=== PATIENT | male | born 1965 | race Caucasian/White ===

== ENCOUNTER → 2022-12-24 10:52 | Outpatient (BNVA) | payer MEDICAID, SELFPAY | PROVIDERS: Referring Provider Nurse Practitioner; Visit Provider Orthopaedic Surgery | DX: M25.511 Pain in right shoulder (principal) | CPT/HCPCS: 73030 ==

== ENCOUNTER 2023-01-25 10:14 | Emergency (ER) | payer MEDICAID, SELFPAY ==
[2023-01-25 10:44] VITALS: BP 144/85; PULSE 96; RESP 16; TEMP 36.8; O2SAT 95; BMI 34.3
--- NOTE | 2023-01-25 11:00 | W.ED.EXTPRO ---
HPI - Extremity Problem General: Chief complaint: Extremity Injury, Lower Stated complaint: Swelling in legs,SOB Time Seen by Provider: 01/25/23 11:00 History of Present Illness: Mr. Mcgowan is a 57-year-old gentleman with history of COPD presenting to the emergency department for heart failure symptoms. He does not have a history of heart failure or known heart disease. He reports approximately 2 weeks of noticing some left lateral thigh pain that was burning and aching. Initially this was intermittent however now has been constant and he reports lower extremity edema which is new. He has gained approximately 20 pounds in the past 6 weeks unintentionally. He does note dyspnea and dyspnea on exertion. Denies other infectious symptoms. Reports normal urine output. Course of symptoms is worsened. Intensity is moderate. No other specific changes in health, exacerbating, or alleviating factors identified. Onset (ago): week(s) Pain Consistency: constant and intermittent Location: left and lower extremity Quality: burning Radiation: none Relieving factors: movement Exacerbating factors: nothing Associated symptoms: Reports short of breath and other Review of Systems General: Reports: 10 or more systems reviewed and unremarkable except in HPI and below PFSH ED PFSH: Medical History (Updated 02/05/23 @ 14:23 by Chacho Crow MD) Cigarette nicotine dependence COPD (chronic obstructive pulmonary disease) Surgical History H/O wrist surgery Family History Other CAD (coronary artery disease) Family history of premature coronary artery disease Stroke Social History Smoking and tobacco status: current every day smoker cigarettes Packs smoked per day: 1 Years cigarettes smoked: 42 [ Other cigarette details: 13] Physical Exam Const: COMMON NORMALS: alert GENERAL APPEARANCE: cooperative and well developed HENMT: COMMON NORMALS: normocephalic and atraumatic HEAD & SCALP: normocephalic and atraumatic Eye: COMMON NORMALS: conjunctivae normal CONJUNCTIVA: Yes conjunctivae normal SCLERA: sclerae normal Neck/C-Spine: COMMON NORMALS: supple GENERAL: Yes trachea midline Resp: COMMON NORMALS: normal respiratory effort EFFORT & INSPECTION: Yes able to speak in complete sentences AUSCULTATION: diminished lung sounds Cardio: COMMON NORMALS: regular rate and regular rhythm RATE: regular rate RHYTHM: regular rhythm PERIPHERAL PULSES: posterior tibial pulses present and dorsalis pedis present GI: COMMON NORMALS: Soft to palpation PALPATION: Yes Soft to palpation and No Tenderness to palpation present (GI) Extremity: NARRATIVE EXTREMITY EXAM: TTP lateral thigh in the LFCN distribution GENERAL: Yes normal exam except as noted and Yes edema Neuro: COMMON NORMALS: moves all extremities SENSORIUM/ORIENTATION: Yes alert and No Orientation impaired Psych: COMMON NORMALS: mental status grossly normal and Normal thought process present THOUGHT PROCESS: Normal thought process present Course Vital Signs: Vital signs: Vital Signs Temperature 98.2 F 01/25/23 10:44 Pulse Rate 96 01/25/23 10:44 Respiratory Rate 16 01/25/23 10:44 Blood Pressure 144/85 01/25/23 10:44 Pulse Oximetry 95 01/25/23 10:44 Oxygen Delivery Me thod 01/25/23 10:44 MDM - Extremity (Nontraumatic) Medical Decision Making 57-year-old gentleman presenting with shortness of breath and lower extremity edema. He also endorses weight gain/abnormal sensation. Exam as above. Patient is nontoxic in appearance. EKG notable for sinus rhythm, normal axis and intervals, no STEMI. Similar on repeat. Labs with mild leukocytosis, normal hemoglobin, mildly elevated platelet count. No significant metabolic abnormalities. BNP is normal. Elevated TSH with normal free T4. Chest x-ray with cardiomegaly and mild increased pulmonary vascular congestion, negative DVT study. Patient does have evidence of congestive heart failure and clinical history and exam however vital signs are satisfactory and he does not show evidence of acute decompensation/cardiogenic shock. I believe outpatient management with close follow-up and initiation of course of Lasix with potassium supplementation from the ER is appropriate and patient is comfortable with this plan. The results of ED evaluation were discussed with the patient including prescriptions and/or symptomatic cares (if applicable) including appropriate and responsible use, followup plan, and return precautions. The patient verbalized understanding and felt safe for discharge. Medical Records I reviewed the patient's medical records. Lab Data I reviewed the patient's lab results. 01/25/23 12:09 01/25/23 12:09 Radiology Impressions Chest X-Ray 01/25/23 11:10 IMPRESSION: Cardiomegaly with elevated central venous pressure otherwise negative chest. Laboratory Results WBC 11.8 10^3/uL (4.0-10.0) H 01/25/23 12:09 RBC 4.21 10^6/uL (4.1-5.3) 01/25/23 12:09 Hgb 12.1 g/dL (11.7-16.6) 01/25/23 12:09 Hct 38.7 % (42.0-52.0) L 01/25/23 12:09 MCV 91.9 fl (80-94) 01/25/23 12:09 MCH 28.7 pg (28.0-34.0) 01/25/23 12:09 MCHC 31.3 g/dL (30.0-36.0) 01/25/23 12:09 RDW 14.9 % (12.1-15.1) 01/25/23 12:09 Plt Count 426 10^3/cmm (130-400) H 01/25/23 12:09 MPV 8.8 fL (7.4-10.4) 01/25/23 12:09 Neut % (Auto) 73.7 % 01/25/23 12:09 Lymph % (Auto) 13.2 % 01/25/23 12:09 Dyer % (Auto) 8.0 % 01/25/23 12:09 Eos % (Auto) 3.4 % 01/25/23 12:09 Baso % (Auto) 1.2 % 01/25/23 12:09 Neut # (Auto) 8.67 10^3/uL (1.8-7.7) H 01/25/23 12:09 Lymph # (Auto) 1.6 10^3/uL (0.8-4.8) 01/25/23 12:09 Dyer # (Auto) 0.9 10^3/uL (0.2-0.9) 01/25/23 12:09 Eos # (Auto) 0.4 10^3/uL (0.0-0.8) 01/25/23 12:09 Baso # (Auto) 0.1 10^3/uL (0.0-0.1) 01/25/23 12:09 Nucleated RBC % (auto) 0 % 01/25/23 12:09 Nucleated RBCs # 0.0 /100WBC 01/25/23 12:09 Sodium 137 mmol/L (136-145) 01/25/23 12:09 Potassium 4.5 mmol/L (3.5-5.1) 01/25/23 12:09 Chloride 100 mmol/L (98-107) 01/25/23 12:09 Carbon Dioxide 28 mmol/L (22-29) 01/25/23 12:09 Anion Gap 13.5 (5-19) 01/25/23 12:09 BUN 8 mg/dL (6-20) 01/25/23 12:09 Creatinine 0.8 mg/dL (0.7-1.2) 01/25/23 12:09 GFR Calculation 100.4 mL/min (90-130) 01/25/23 12:09 Glucose 90 mg/dL (65-115) 01/25/23 12:09 Calculated Osmolality 282 mOsm/kg (285-295) L 01/25/23 12:09 Calcium 9.3 mg/dL (8.5-10.5) 01/25/23 12:09 Total Bilirubin 0.2 mg/dL (0.15-1.2) 01/25/23 12:09 AST 25 U/L (0-40) 01/25/23 12:09 ALT 17 U/L (0-41) 01/25/23 12:09 Alkaline Phosphatase 83 U/L (40-130) 01/25/23 12:09 Troponin T Baseline 14 ng/L (0-15) 01/25/23 12:09 NT-Pro-B Natriuret Pep 59 pg/mL (0-125) 01/25/23 12:09 Total Protein 6.8 g/dL (6.6-8.7) 01/25/23 12:09 Albumin 4.1 g/dL (3.5-5.2) 01/25/23 12:09 Globulin 2.7 g/dL (1.3-4.6) 01/25/23 12:09 TSH 6.57 uIU/mL (0.27-4.20) H 01/25/23 12:09 Free T4 1.05 ng/dL (0.82-1.77) 01/25/23 12:09 Discharge Plan Discharge Patient Disposition: Home Clinical Impression: Edema, peripheral, Symptom of congestive heart failure Condition: Stable Prescriptions: New Lasix 20 mg tablet 20 mg PO DAILY Qty: 30 0RF potassium chloride 10 mEq capsule, extended release 10 meq PO DAILY Qty: 30 0RF No Action amlodipine 10 mg tablet 10 mg PO DAILY Qty: 30 3RF levothyroxine 137 mcg tablet 137 mcg PO DAILY Ventolin HFA 90 mcg/actuation HFA aerosol inhaler 2 puff INHALATION Q4H PRN (Reason: Shortness Of Breath Or Wheezing) Symbicort 160-4.5 mcg/actuation HFA aerosol inhaler 2 puff INHALATION BID buprenorphine-naloxone [Suboxone] 8-2 mg film 1 film sublingual TID Spiriva Respimat 2.5 mcg/actuation mist 2 puff INHALATION DAILY buspirone 10 mg tablet 10 mg PO DAILY Discharge Orders: Discharge ED (Routine); Ordered 01/25/23 Ordered By: Stephan Potter Referrals: Cady Kumari, PATENT ENGINEER [Primary Care Provider] - Discharge Diet: Low Salt Discharge Activity: Increase activity as tolerated Patient Instructions: Congestive Heart Failure, Leg Edema (ED), Low-Sodium Diet (ED) Activity Restrictions/Additional Instructions: Thank you for visiting the emergency department. You were seen and evaluated for signs and symptoms of heart failure. Given laboratory and clinical evaluation I do not believe that you require inpatient management at this time. I will start you on Lasix and potassium supplementation. This requires laboratory follow-up within 1 week for evaluation of electrolytes and kidney function. I will also message case management for cardiology follow-up and an outpatient echocardiogram to evaluate your heart function. Please follow-up with your primary care provider. Return to the emergency department for worsening symptoms, chest pain, shortness of breath, worsening symptoms despite medication, or anything else that you are concerned about and feel needs emergency department evaluation. Coding Level of Care Code ED Director Of Sustainability Programs for Marco Laguna
--- NOTE | 2023-01-25 11:10 | XRR_ITS ---
PROCEDURE INFORMATION: Exam: XR Chest Exam date and time: 01/25/2023 11:17 AM Age: 57 years old Clinical indication: Shortness of breath; Additional info: SOB TECHNIQUE: Imaging protocol: Radiologic exam of the chest. Views: 1 view. COMPARISON: CR XR shoulder RT min 2V* [id number] 12/24/2022 10:53 AM FINDINGS: Lungs: Lung danielson are aerated and clear without infiltrates or overt CHF. Pleural spaces: Unremarkable. No pleural effusion. No pneumothorax. Heart/Mediastinum: Cardiac silhouette is enlarged. There is pulmonary vascular redistribution indicating elevated central venous pressure. Bones/joints: Unremarkable. XR/XR chest 1V portable [id number] IMPRESSION: Cardiomegaly with elevated central venous pressure otherwise negative chest.
--- NOTE | 2023-01-25 11:10 | USCV_ITS ---
Wilian Mcgowan Age: 57 Gender: M : 1965 Exam Date: 01/25/2023 11:45 Ordering Phys: Stephan Potter MD Technologist: BEE [place] [facility] [place] LLE PAIN AND NUMBNESS HISTORY: Lower extremity pain. PROCEDURES: Venous duplex imaging was performed in only the left lower extremity. The following venous structures were evaluated: common femoral vein, profunda vein, proximal portion of the greater saphenous vein, superficial femoral vein, and the popliteal vein. In addition, the posterior tibial and peroneal trunk were evaluated. Serial compression, augmentation maneuvers, and spectral Doppler flow evaluation were performed. FINDINGS: No evidence of DVT seen in any vessel visualized at this time. CONCLUSIONS No evidence of left lower extremity DVT. Ellis Moreno MD (Electronically Signed) Final Date: 25 January 2023 12:40 S
--- NOTE | 2023-01-25 11:11 | ECG_ITS ---
[facility] Test Date: 2023-01-25 Pat Name: Wilian Mcgowan Department: Room: Gender: Male Quality Assurance Director: : 1965 Requested By: Stephan Potter Order Number: [id number] Manuelito MD: Julio Lino M.D. Measurements Intervals [place] Rate: 86 P: 37 WV: 170 QRS: 69 QRSD: 92 T: 69 QT: 338 QTc: 406 Interpretive Statements SINUS RHYTHM No previous ECG available for comparison Electronically Signed On 01-25-2023 18:17:26 CLIENT ACCOUNT REPRESENTATIVE by Julio Lino M.D. [id number]
[2023-01-25 12:21] LABS: Basophils # 0.1 10^3/uL (0.0-0.1); Basophils % 1.2 %; Eosinophils # 0.4 10^3/uL (0.0-0.8); Eosinophils % 3.4 %; Hematocrit 38.7 % (42.0-52.0); Hemoglobin 12.1 g/dL (11.7-16.6); Lymphocytes # 1.6 10^3/uL (0.8-4.8); Lymphocytes % 13.2 %; Mean Corpuscular HGB Conc 31.3 g/dL (30.0-36.0); Mean Corpuscular Hemoglobin 28.7 pg (28.0-34.0); Mean Corpuscular Volume 91.9 fl (80-94); Mean Platelet Volume 8.8 fL (7.4-10.4); Monocytes # 0.9 10^3/uL (0.2-0.9); Neutrophils # 8.67 10^3/uL (1.8-7.7); Neutrophils % 73.7 %; Nucleated Red Blood Cells % 0 %; Platelet Count 426 10^3/cmm (130-400); Red Blood Count 4.21 10^6/uL (4.1-5.3); Red Cell Distribution Width 14.9 % (12.1-15.1); White Blood Count 11.8 10^3/uL (4.0-10.0)
[2023-01-25 12:48] LABS: Troponin(5th) Baseline 14 ng/L (0-15)
[2023-01-25 12:55] LABS: Alanine Aminotransferase 17 U/L (0-41); Albumin Level 4.1 g/dL (3.5-5.2); Alkaline Phosphatase 83 U/L (40-130); Anion Gap 13.5 (5-19); Aspartate Amino Transferase 25 U/L (0-40); Blood Urea Nitrogen 8 mg/dL (6-20); Calcium 9.3 mg/dL (8.5-10.5); Carbon Dioxide 28 mmol/L (22-29); Chloride 100 mmol/L (98-107); Globulin 2.7 g/dL (1.3-4.6); Glomerular Filtration Rate 100.4 mL/min (90-130); Glucose 90 mg/dL (65-115); NT Pro B Type Natriuretic Pept 59 pg/mL (0-125); Osmolality Calculated 282 mOsm/kg (285-295); Potassium 4.5 mmol/L (3.5-5.1); Sodium 137 mmol/L (136-145); Thyroid Stimulating Hormone 6.57 uIU/mL (0.27-4.20); Total Bilirubin 0.2 mg/dL (0.15-1.2); Total Protein 6.8 g/dL (6.6-8.7)
--- NOTE | 2023-01-25 13:11 | ECG_ITS ---
[facility] Test Date: 2023-01-25 Pat Name: Wilian Mcgowan Department: Room: Gender: Male Chief Console Operator: : 1965 Requested By: Stephan Potter Order Number: [id number] Manuelito MD: Julio Lino M.D. Measurements Intervals [place] Rate: 77 P: 32 AR: 173 QRS: 56 QRSD: 91 T: 61 QT: 357 QTc: 405 Interpretive Statements SINUS RHYTHM WITH OCCASIONAL SUPRAVENTRICULAR PREMATURE COMPLEXES WARNING: DATA QUALITY MAY AFFECT INTERPRETATION Compared to ECG 01/25/2023 11:15:41 No significant changes Electronically Signed On 01-25-2023 18:22:01 MEDICAL STAFF COORDINATOR by Julio Lino M.D. [email or web address] center[id number]
[2023-01-25 13:43] LABS: Free T4 Free Thyroxine 1.05 ng/dL (0.82-1.77)
--- NOTE | 2023-01-26 08:37 | DCPLANNER ---
Addendum entered by Nahomi Mcmanus 01/28/23 08:35: chef kitchen manager received the following message from [facility] regarding follow up appointment: Per Dr Wolf: patient needs to be evaluated by pcp to determine referral to cardiology Spoke with patient, he stated he feels better than alright and the swelling is down . When asked if he started the lasix he said yes and it has helped, the pain in my left thigh is gone . When asked about his breathing he said it's the same, I have copd . Advised to f/u with pcp, he has appt tomorrow with her and to continue medications. He as been on inhalers since [address] Wolf: call patient and see how he is doing Original Note: chef kitchen manager had message to schedule a follow up appointment for patient with cardiology. chef kitchen manager sent patients information to the front office staff at [facility]. Patients information will be printed and reviewed. Clinic will call patient with appointment information.
--- NOTE | 2023-01-26 10:29 | DCPLANNER ---
Addendum entered by Nahomi Mcmanus 02/23/23 15:07: Patient did attend echo scheduled for 02.18.23 Addendum entered by Nahomi Mcmanus 01/28/23 08:40: Patient has a follow up appointment scheduled for Saturday, February 18, 2023 at 7:00 for an echo. Original Note: auto leasing manager had message to schedule an outpatient echo for patient. auto leasing manager faxed signed order to centralized scheduling, who will call patient with appointment information.
== END 2023-01-25 13:55 | disposition home or self-care (01) ==
PROVIDERS: Emergency Provider Emergency Medicine; PCP Nurse Practitioner
DX: R60.0 Localized edema (principal); I50.9 Heart failure, unspecified; J44.9 Chronic obstructive pulmonary disease, unspecified; F17.210 Nicotine dependence, cigarettes, uncomplicated
CPT/HCPCS: 36415; 71045; 80053; 83880; 84439; 84443; 84484; 85025; 93005; 93971; 99285

== ENCOUNTER 2023-02-16 07:16 | Outpatient (CLI) | payer MEDICAID, SELFPAY ==
--- NOTE | 2023-02-16 07:15 | CT_ITS ---
WS: [id number] LDCT LUNG CANCER SCREENING TECHNIQUE: Noncontrast CT of the chest with coronal and sagittal reformatted images. CLINICAL INFORMATION: lung screening COMPARISON: None. DLP: 73.40 mGy.cm DIvol: Mean CTDIvol: 1.60 (mGy) All CT scans at [facility] use at least one of these dose optimization techniques: automat ed exposure control; mA and/or kV adjustment per patient size (includes targeted exams where dose is matched to clinical indication); or iterative reconstruction. FINDINGS: A few calcified granulomas. Slight bibasilar atelectasis. No other suspicious findings. Normal caliber thoracic aorta. No mediastinal or hilar lymphadenopathy. No acute pulmonary infiltrate s. No focal pneumonia or pleural fluid. No axillary lymphadenopathy. Adrenal glands are normal. Small esophageal hiatal hernia. CT/CT lung screening [id number] IMPRESSION: LUNG-RADS: 2-Benign Appearance or Behavior FOLLOW UP: 12 Month: Continue annual screening with LDCT
== END 2023-02-16 07:17 | disposition home or self-care (01) ==
LOC: RAD 07:16
PROVIDERS: PCP Nurse Practitioner; Visit Provider Internal Medicine Pulmonary Disease
DX: Z12.2 Encounter for screening for malignant neoplasm of respiratory organs (principal); F17.210 Nicotine dependence, cigarettes, uncomplicated
CPT/HCPCS: 71271

== ENCOUNTER 2023-02-18 07:14 | Outpatient (CLI) | payer MEDICAID, SELFPAY ==
--- NOTE | 2023-02-18 07:26 | USCV_ITS ---
Juan MWilian Age: 57 Gender: M : 1965 Exam Date: 02/18/2023 07:30 Ordering Phys: Stephan Potter MD Technologist: [place] [facility] [place]: chf BP: 159 / 97 HR: 86 Rhythm: Sinus Technical Quality: Adequate MEASUREMENTS (Male / Female) Normal Values 2D ECHO LV Diastolic Diameter PLAX 4.2 cm 4.2 - 5.9 / 3.9 - 5.3 cm LV Systolic Diameter PLAX 2.9 cm IVS Diastolic Thickness 1.2 cm 0.6 - 1.0 / 0.6 - 0.9 cm IVS Systolic Thickness 1.6 cm LVPW Diastolic Thickness 1.3 cm 0.6 - 1.0 / 0.6 - 0.9 cm LVPW Systolic Thickness 1.6 cm LVOT Diameter 2.1 cm LV Ejection Fraction 2D Teich 58.2 % LV Ejection Fraction MOD 2C 62.2 % LV Ejection Fraction 2C AL 62.9 % LA Diameter 3.8 cm Aorta at Sinotubular Diameter 2.7 cm IVC Diameter 2.2 cm M-MODE Aortic Annulus Diameter 3.7 cm LA Ao Ratio MM 1.1 MV E Point Septal Separation 1.1 cm DOPPLER AV Peak Velocity 134.0 cm/s LVOT Peak Velocity 94.0 cm/s AV Area Cont Eq vti 2.3 cm squared AV Area Cont Eq pk 2.3 cm squared MV Area PHT 5.0 cm squared Mitral E to A Ratio 1.3 MV E' Velocity 67.5 cm/s Mitral E to MV E' Ratio 11.8 Mitral E to LV E' Lateral Ratio 10.1 Mitral E to LV E' Septal Ratio 14.1 TR Peak Velocity 204.0 cm/s TR Peak Gradient 16.6 mmHg TV Peak E Velocity 82.0 cm/s Right Atrial Pressure 3.0 mmHg Pulmonary Artery Systolic Pressu 19.6 mmHg RV Acceleration Time 0.1 s FINDINGS Left Ventricle Normal left ventricular size and systolic function, EF 61 %. No regional wall motion abnormalities. Right Ventricle The right ventricle is normal in size and function. Right Atrium The right atrium is normal in size. Left Atrium The left atrium is normal in size. Mitral Valve Trace to mild mitral valve regurgitation. Aortic Valve No gross abnormalities noted Tricuspid Valve Mild tricuspid valve regurgitation. Pulmonic Valve No gross abnormalities noted Pericardium Normal pericardium without effusion. Aorta Normal ascending aorta dimension. IVC Normal inferior vena cava. CONCLUSIONS Normal left ventricular size and systolic function, EF 61 %. No regional wall motion abnormalities. Trace to mild mitral valve regurgitation. Mild tricuspid valve regurgitation. Estimated pulmonary artery peak systolic pressure 20 mm Hg. There is no pericardial effusion. There are no intracardiac masses. No similar previous studies are available for comparison Dr Leonora Wolf MD FACC (Electronically Signed) Final Date: 18 February 2023 11:44 S
== END 2023-02-18 07:15 | disposition home or self-care (01) ==
PROVIDERS: PCP Nurse Practitioner; Visit Provider Internal Medicine Pulmonary Disease
DX: I08.1 Rheumatic disorders of both mitral and tricuspid valves (principal); I50.9 Heart failure, unspecified
CPT/HCPCS: 93306

== ENCOUNTER 2023-02-18 18:05 | Emergency (ER) | payer MEDICAID, SELFPAY ==
[2023-02-18 18:10] VITALS: BP 149/98; PULSE 99; RESP 18; TEMP 36.3; O2SAT 96; BMI 33.1
--- NOTE | 2023-02-18 21:41 | ED_ITS ---
Documented by User: SAM Gomez 02/18/23 23:35 HPI - Extremity Problem General: Chief complaint: Extremity Problem,Nontraumatic Stated complaint: bilateral feet swelling Time Seen by Provider: 02/18/23 21:40 History of Present Illness: 57-year-old male patient comes in due to swelling of the lower extremities bilaterally. Patient had been seen 1 week ago and was given 20 mg of Lasix daily for 7 days with minimal to no relief. Patient was s een earlier today in outpatient clinic for echocardiogram. Patient was recommended to come to the ER for repeat evaluation due to the redness in his lower extremities. Patient reports no chest pain or shortness of breath. Patient does have a history of hypertension, COPD, and nicotine dependence. Associated symptoms: Reports rash; Deny chest pain or fever(s) Review of Systems Const: Denies: fever(s) Card: Reports: swelling of feet/ankles and other; Denies: chest pain Resp: Reports: other; Denies: dyspnea GI: Denies: nausea or vomiting : Denies: difficulty urinating Musc: Reports: extremity pain and extremity swelling Skin/Breast: Reports: rash PFSH ED PFSH: Medical History (Updated 02/18/23 @ 23:28 by SAM Gomez) Cigarette nicotine dependence COPD (chronic obstructive pulmonary disease) Surgical History H/O wrist surgery Family History Other CAD (coronary artery disease) Family history of premature coronary artery disease Stroke Social History Smoking and tobacco status: current every day smoker cigarettes Packs smoked per day: 1 Years cigarettes smoked: 42 [ Other cigarette details: 13] Physical Exam Const: COMMON NORMALS: alert HENMT: COMMON NORMALS: normocephalic HEAD & SCALP: normocephalic MOUTH: Normal oral and palatal mucosa present Neck/C-Spine: COMMON NORMALS: full ROM Resp: COMMON NORMALS: normal respiratory effort and clear to auscultation bilaterally AUSCULTATION: clear to auscultation bilaterally Cardio: COMMON NORMALS: regular rate and regular rhythm RATE: regular rate RHYTHM: regular rhythm GI: COMMON NORMALS: Soft to palpation and non-tender PALPATION: Yes Soft to palpation : COMMON NORMALS: Yes no CVA tenderness BLADDER/KIDNEY EXAM: Yes no CVA tenderness Back/Pelvis: COMMON NORMALS: no CVA tenderness Extremity: COMMON NORMALS: full ROM NARRATIVE EXTREMITY EXAM: Bilateral ankle swelling with +1 edema. Patient also has some redness to the skin at the sock line and above. Neuro: SENSORIUM/ORIENTATION: Yes alert Skin: COMMON NORMALS: turgor normal GENERAL SKIN EXAM: turgor normal Course Vital Signs: Vital signs: Vital Signs Temperature 97.4 F L 02/18/23 18:10 Pulse Rate 83 02/19/23 00:04 Respiratory Rate 16 02/19/23 00:04 Blood Pressure 124/77 02/19/23 00:04 Pulse Oximetry 95 02/19/23 00:04 Oxygen Delivery Me thod 02/18/23 18:10 MDM - Extremity (Nontraumatic) Medical Decision Making 57-year-old gentleman comes in today due to increased swelling to the lower extremities bilateral. Patient just completed 1 week of Lasix with minimal to no relief of swelling. Patient was recommended to be seen in the ER due to the swelling to his lower extremities. On exam pulses are intact. Patient has some redness above the sock line bilateral extremities. Patient does have +1 pitting edema to both extremities. Differential diagnosis includes but not limited to CHF, adverse drug effect, dependent edema. Current values were unremarkable. I believe the patient probably has some stasis dermatitis secondary to his abnormal swelling to bilateral lower extremities. Believe patient's amlodipine is most likely causing some secondary swelling will recommend holding the medication and placing him on lisinopril 10 mg with 12-1/2 mg of hydrochlorothiazide. We will stop any further Lasix. I reviewed this with the patient and had discussed the plan with Dr. Barrera who agreed to the plan. Patient reported understanding and agreed to recommendations and need for follow-up. Lab Data 02/18/23 22:05 02/18/23 22:05 Radiology Impressions Chest X-Ray 02/18/23 21:43 IMPRESSION: No acute cardiopulmonary findings. Laboratory Results WBC 11.0 10^3/uL (4.0-10.0) H 02/18/23 22:05 RBC 4.20 10^6/uL (4.1-5.3) 02/18/23 22:05 Hgb 12.2 g/dL (11.7-16.6) 02/18/23 22:05 Hct 37.2 % (42.0-52.0) L 02/18/23 22:05 MCV 88.6 fl (80-94) 02/18/23 22:05 MCH 29.0 pg (28.0-34.0) 02/18/23 22:05 MCHC 32.8 g/dL (30.0-36.0) 02/18/23 22:05 RDW 15.3 % (12.1-15.1) H 02/18/23 22:05 Plt Count 371 10^3/cmm (130-400) 02/18/23 22:05 MPV 8.9 fL (7.4-10.4) 02/18/23 22:05 Neut % (Auto) 63.9 % 02/18/23 22:05 Lymph % (Auto) 17.4 % 02/18/23 22:05 Franklin % (Auto) 11.7 % 02/18/23 22:05 Eos % (Auto) 5.4 % 02/18/23 22:05 Baso % (Auto) 1.1 % 02/18/23 22:05 Neut # (Auto) 7.06 10^3/uL (1.8-7.7) 02/18/23 22:05 Lymph # (Auto) 1.9 10^3/uL (0.8-4.8) 02/18/23 22:05 Franklin # (Auto) 1.3 10^3/uL (0.2-0.9) H 02/18/23 22:05 Eos # (Auto) 0.6 10^3/uL (0.0-0.8) 02/18/23 22:05 Baso # (Auto) 0.1 10^3/uL (0.0-0.1) 02/18/23 22:05 Nucleated RBC % (auto) 0 % 02/18/23 22:05 Nucleated RBCs # 0.0 /100WBC 02/18/23 22:05 ESR 51 mm/hr (0-10) H 02/18/23 22:05 Sodium 134 mmol/L (136-145) L 02/18/23 22:05 Potassium 3.5 mmol/L (3.5-5.1) 02/18/23 22:05 Chloride 97 mmol/L (98-107) L 02/18/23 22:05 Carbon Dioxide 26 mmol/L (22-29) 02/18/23 22:05 Anion Gap 14.5 (5-19) 02/18/23 22:05 BUN 11 mg/dL (6-20) 02/18/23 22:05 Creatinine 0.8 mg/dL (0.7-1.2) 02/18/23 22:05 GFR Calculation 100.4 mL/min (90-130) 02/18/23 22:05 Glucose 124 mg/dL (65-115) H 02/18/23 22:05 Calculated Osmolality 279 mOsm/kg (285-295) L 02/18/23 22:05 Calcium 8.9 mg/dL (8.5-10.5) 02/18/23 22:05 Total Bilirubin 0.2 mg/dL (0.15-1.2) 02/18/23 22:05 AST 19 U/L (0-40) 02/18/23 22:05 ALT 17 U/L (0-41) 02/18/23 22:05 Alkaline Phosphatase 100 U/L (40-130) 02/18/23 22:05 Troponin T Baseline 10 ng/L (0-15) 02/18/23 22:05 Troponin T 120 Minute Cancelled 02/18/23 Unknown Delta Troponin T Cancelled 02/18/23 Unknown C-Reactive Protein 21.7 mg/L (0.0-4.9) H 02/18/23 22:05 NT-Pro-B Natriuret Pep 36 pg/mL (0-125) 02/18/23 22:05 Total Protein 7.8 g/dL (6.6-8.7) 02/18/23 22:05 Albumin 4.2 g/dL (3.5-5.2) 02/18/23 22:05 Globulin 3.6 g/dL (1.3-4.6) 02/18/23 22:05 TSH 2.09 uIU/mL (0.27-4.20) 02/18/23 22:05 EKG Data EKG 1: EKG interpretation date: 02/18/23 EKG interpretation time: 22:16 Prior EKG tracings: available for review Interpretation: EKG shows a normal sinus rhythm with a regular rate at 82 bpm. There is some artifact on the EKG. Compared to other exams it was unremarkable. No ST elevation or ectopy was seen. Discharge Plan Discharge Patient Disposition: Home Clinical Impression: Lower extremity edema Hypertension Qualifiers: Hypertension type: unspecified Qualified Code(s): I10 - Essential (primary) hypertension Condition: Stable Prescriptions: New lisinopril-hydrochlorothiazide 10-12.5 mg tablet 1 tab PO DAILY Qty: 30 2RF No Action amlodipine 10 mg tablet 10 mg PO DAILY Qty: 30 3RF levothyroxine 137 mcg tablet 137 mcg PO DAILY Ventolin HFA 90 mcg/actuation HFA aerosol inhaler 2 puff INHALATION Q4H PRN (Reason: Shortness Of Breath Or Wheezing) Symbicort 160-4.5 mcg/actuation HFA aerosol inhaler 2 puff INHALATION BID buprenorphine-naloxone [Suboxone] 8-2 mg film 1 film sublingual TID Spiriva Respimat 2.5 mcg/actuation mist 2 puff INHALATION DAILY Lasix 20 mg tablet 20 mg PO DAILY Qty: 30 0RF potassium chloride 10 mEq capsule, extended release 10 meq PO DAILY Qty: 30 0RF buspirone 10 mg tablet 10 mg PO DAILY Discharge Orders: Discharge ED (Routine); Ordered 02/18/23 Ordered By: Torsten Perry Referrals: Cady Kumari FNP [Primary Care Provider] - Discharge Diet: Usual diet Discharge Activity: Increase activity as tolerated Patient Instructions: Hypertension (ED) Activity Restrictions/Additional Instructions: Home and rest. Elevate lower legs is much as possible. Stop amlodipine. Start on lisinopril with hydrochlorothiazide daily in the morning. Follow-up with primary care in 1 week for recheck of blood pressure and reevaluation. Return to ER for worsening symptoms such as fever greater than 100.4, increased shortness of breath, or severe chest pain, or new concerns. Coding Level of Care Code ED Audio Visual Specialist for Chg Fwd Documented by User: Shadi Crawford Bruce, 02/19/23 01:43 HPI - Extremity Problem General: Chief complaint: Extremity Problem,Nontraumatic Stated complaint: bilateral feet swelling Time Seen by Provider: 02/18/23 21:40 PFS ED PFS: Medical History (Updated 02/18/23 @ 23:28 by SAM Gomez) Cigarette nicotine dependence COPD (chronic obstructive pulmonary disease) Surgical History H/O wrist surgery Family History Other CAD (coronary artery disease) Family history of premature coronary artery disease Stroke Social History Smoking and tobacco status: current every day smoker cigarettes Packs smoked per day: 1 Years cigarettes smoked: 42 [ Other cigarette details: 13] Course Vital Signs: Vital signs: Vital Signs Temperature 97.4 F L 02/18/23 18:10 Pulse Rate 83 02/19/23 00:04 Respiratory Rate 16 02/19/23 00:04 Blood Pressure 124/77 02/19/23 00:04 Pulse Oximetry 95 02/19/23 00:04 Oxygen Delivery Me thod 02/18/23 18:10 MDM - Extremity (Nontraumatic) Medical Decision Making 57-year-old gentleman comes in today due to increased swelling to the lower extremities bilateral. Patient just completed 1 week of Lasix with minimal to no relief of swelling. Patient was recommended to be seen in the ER due to the swelling to his lower extremities. On exam pulses are intact. Patient has some redness above the sock line bilateral extremities. Patient does have +1 pitting edema to both extremities. Differential diagnosis includes but not limited to CHF, adverse drug effect, dependent edema. Current values were unremarkable. I believe the patient probably has some stasis dermatitis secondary to his abnormal swelling to bilateral lower extremities. Believe patient's amlodipine is most likely causing some secondary swelling will recommend holding the medication and placing him on lisinopril 10 mg with 12-1/2 mg of hydrochlorothiazide. We will stop any further Lasix. I reviewed this with the patient and had discussed the plan with Dr. Barrera who agreed to the plan. Patient reported understanding and agreed to recommendations and need for follow-up. This patient was originally seen by SAM Pace.? I agree with his history, evaluation, and treatment. Lab Data 02/18/23 22:05 02/18/23 22:05 Radiology Impressions Chest X-Ray 02/18/23 21:43 IMPRESSION: No acute cardiopulmonary findings. Laboratory Results WBC 11.0 10^3/uL (4.0-10.0) H 02/18/23 22:05 RBC 4.20 10^6/uL (4.1-5.3) 02/18/23 22:05 Hgb 12.2 g/dL (11.7-16.6) 02/18/23 22:05 Hct 37.2 % (42.0-52.0) L 02/18/23 22:05 MCV 88.6 fl (80-94) 02/18/23 22:05 MCH 29.0 pg (28.0-34.0) 02/18/23 22:05 MCHC 32.8 g/dL (30.0-36.0) 02/18/23 22:05 RDW 15.3 % (12.1-15.1) H 02/18/23 22:05 Plt Count 371 10^3/cmm (130-400) 02/18/23 22:05 MPV 8.9 fL (7.4-10.4) 02/18/23 22:05 Neut % (Auto) 63.9 % 02/18/23 22:05 Lymph % (Auto) 17.4 % 02/18/23 22:05 Franklin % (Auto) 11.7 % 02/18/23 22:05 Eos % (Auto) 5.4 % 02/18/23 22:05 Baso % (Auto) 1.1 % 02/18/23 22:05 Neut # (Auto) 7.06 10^3/uL (1.8-7.7) 02/18/23 22:05 Lymph # (Auto) 1.9 10^3/uL (0.8-4.8) 02/18/23 22:05 Franklin # (Auto) 1.3 10^3/uL (0.2-0.9) H 02/18/23 22:05 Eos # (Auto) 0.6 10^3/uL (0.0-0.8) 02/18/23 22:05 Baso # (Auto) 0.1 10^3/uL (0.0-0.1) 02/18/23 22:05 Nucleated RBC % (auto) 0 % 02/18/23 22:05 Nucleated RBCs # 0.0 /100WBC 02/18/23 22:05 ESR 51 mm/hr (0-10) H 02/18/23 22:05 Sodium 134 mmol/L (136-145) L 02/18/23 22:05 Potassium 3.5 mmol/L (3.5-5.1) 02/18/23 22:05 Chloride 97 mmol/L (98-107) L 02/18/23 22:05 Carbon Dioxide 26 mmol/L (22-29) 02/18/23 22:05 Anion Gap 14.5 (5-19) 02/18/23 22:05 BUN 11 mg/dL (6-20) 02/18/23 22:05 Creatinine 0.8 mg/dL (0.7-1.2) 02/18/23 22:05 GFR Calculation 100.4 mL/min (90-130) 02/18/23 22:05 Glucose 124 mg/dL (65-115) H 02/18/23 22:05 Calculated Osmolality 279 mOsm/kg (285-295) L 02/18/23 22:05 Calcium 8.9 mg/dL (8.5-10.5) 02/18/23 22:05 Total Bilirubin 0.2 mg/dL (0.15-1.2) 02/18/23 22:05 AST 19 U/L (0-40) 02/18/23 22:05 ALT 17 U/L (0-41) 02/18/23 22:05 Alkaline Phosphatase 100 U/L (40-130) 02/18/23 22:05 Troponin T Baseline 10 ng/L (0-15) 02/18/23 22:05 Troponin T 120 Minute Cancelled 02/18/23 Unknown Delta Troponin T Cancelled 02/18/23 Unknown C-Reactive Protein 21.7 mg/L (0.0-4.9) H 02/18/23 22:05 NT-Pro-B Natriuret Pep 36 pg/mL (0-125) 02/18/23 22:05 Total Protein 7.8 g/dL (6.6-8.7) 02/18/23 22:05 Albumin 4.2 g/dL (3.5-5.2) 02/18/23 22:05 Globulin 3.6 g/dL (1.3-4.6) 02/18/23 22:05 TSH 2.09 uIU/mL (0.27-4.20) 02/18/23 22:05 Discharge Plan Discharge Patient Disposition: Home Clinical Impression: Lower extremity edema Hypertension Qualifiers: Hypertension type: unspecified Qualified Code(s): I10 - Essential (primary) hypertension Condition: Stable Prescriptions: New lisinopril-hydrochlorothiazide 10-12.5 mg tablet 1 tab PO DAILY Qty: 30 2RF No Action amlodipine 10 mg tablet 10 mg PO DAILY Qty: 30 3RF levothyroxine 137 mcg tablet 137 mcg PO DAILY Ventolin HFA 90 mcg/actuation HFA aerosol inhaler 2 puff INHALATION Q4H PRN (Reason: Shortness Of Breath Or Wheezing) Symbicort 160-4.5 mcg/actuation HFA aerosol inhaler 2 puff INHALATION BID buprenorphine-naloxone [Suboxone] 8-2 mg film 1 film sublingual TID Spiriva Respimat 2.5 mcg/actuation mist 2 puff INHALATION DAILY Lasix 20 mg tablet 20 mg PO DAILY Qty: 30 0RF potassium chloride 10 mEq capsule, extended release 10 meq PO DAILY Qty: 30 0RF buspirone 10 mg tablet 10 mg PO DAILY Discharge Orders: Discharge ED (Routine); Ordered 02/18/23 Ordered By: Torsten Perry Referrals: Cady Kumari, CERTIFIED INDUSTRIAL HYGIENIST [Primary Care Provider] - Discharge Diet: Usual diet Discharge Activity: Increase activity as tolerated Patient Instructions: Hypertension (ED) Activity Restrictions/Additional Instructions: Home and rest. Elevate lower legs is much as possible. Stop amlodipine. Start on lisinopril with hydrochlorothiazide daily in the morning. Follow-up with primary care in 1 week for recheck of blood pressure and reevaluation. Return to ER for worsening symptoms such as fever greater than 100.4, increased shortness of breath, or severe chest pain, or new concerns. Coding Level of Care Code ED Audio Visual Specialist for Marco Laguna
--- NOTE | 2023-02-18 21:43 | XRR_ITS ---
PROCEDURE INFORMATION: Exam: XR Chest Exam date and time: 02/18/2023 10:11 PM Age: 57 years old Clinical indication: Shortness of breath; Additional info: Chf TECHNIQUE: Imaging protocol: Radiologic exam of the chest. Views: 1 view. COMPARISON: CT lung screening [id number] 02/16/2023 7:32 AM FINDINGS: Lungs: There is no evidence of focal pulmonary consolidation. Normal pulmonary vascularity. Pleural spaces: No pleural effusion or pneumothorax. Heart/Mediastinum: The heart is top-normal in size. Bones/joints: No acute fracture is identified. XR/XR chest 1V portable [id number] IMPRESSION: No acute cardiopulmonary findings.
--- NOTE | 2023-02-18 22:00 | ECG_ITS ---
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 Measurements Intervals [place] Rate: 82 P: -4 OK: 173 QRS: 60 QRSD: 93 T: 70 QT: 344 QTc: 403 Interpretive Statements SINUS RHYTHM Compared to ECG 01/25/2023 13:42:33 No significant changes Electronically Signed On 02-19-2023 7:12:28 CDT by Beau Mancera M.D. [id number]
[2023-02-18 22:20] LABS: Basophils # 0.1 10^3/uL (0.0-0.1); Basophils % 1.1 %; Eosinophils # 0.6 10^3/uL (0.0-0.8); Eosinophils % 5.4 %; Hematocrit 37.2 % (42.0-52.0); Hemoglobin 12.2 g/dL (11.7-16.6); Lymphocytes # 1.9 10^3/uL (0.8-4.8); Lymphocytes % 17.4 %; Mean Corpuscular HGB Conc 32.8 g/dL (30.0-36.0); Mean Corpuscular Volume 88.6 fl (80-94); Mean Platelet Volume 8.9 fL (7.4-10.4); Monocytes # 1.3 10^3/uL (0.2-0.9); Monocytes % 11.7 %; Neutrophils # 7.06 10^3/uL (1.8-7.7); Neutrophils % 63.9 %; Nucleated Red Blood Cells % 0 %; Platelet Count 371 10^3/cmm (130-400); Red Cell Distribution Width 15.3 % (12.1-15.1)
[2023-02-18 22:35] LABS: Troponin(5th) Baseline 10 ng/L (0-15)
[2023-02-18 22:44] LABS: Alanine Aminotransferase 17 U/L (0-41); Albumin Level 4.2 g/dL (3.5-5.2); Alkaline Phosphatase 100 U/L (40-130); Anion Gap 14.5 (5-19); Aspartate Amino Transferase 19 U/L (0-40); Blood Urea Nitrogen 11 mg/dL (6-20); Calcium 8.9 mg/dL (8.5-10.5); Carbon Dioxide 26 mmol/L (22-29); Chloride 97 mmol/L (98-107); Globulin 3.6 g/dL (1.3-4.6); Glomerular Filtration Rate 100.4 mL/min (90-130); Glucose 124 mg/dL (65-115); NT Pro B Type Natriuretic Pept 36 pg/mL (0-125); Osmolality Calculated 279 mOsm/kg (285-295); Potassium 3.5 mmol/L (3.5-5.1); Sodium 134 mmol/L (136-145); Thyroid Stimulating Hormone 2.09 uIU/mL (0.27-4.20); Total Bilirubin 0.2 mg/dL (0.15-1.2); Total Protein 7.8 g/dL (6.6-8.7)
[2023-02-18 23:06] LABS: Erythrocyte Sedimentation Rate 51 mm/hr (0-10)
[2023-02-18 23:17] LABS: C Reactive Protein 21.7 mg/L (0.0-4.9)
[2023-02-19 00:04] VITALS: BP 124/77; PULSE 83; RESP 16; O2SAT 95
== END 2023-02-19 00:06 | disposition home or self-care (01) ==
PROVIDERS: Emergency Provider Nurse Practitioner Family; PCP Nurse Practitioner
DX: R60.0 Localized edema (principal); I10 Essential (primary) hypertension; J44.9 Chronic obstructive pulmonary disease, unspecified; F17.210 Nicotine dependence, cigarettes, uncomplicated
CPT/HCPCS: 36415; 71045; 80053; 83880; 84443; 84484; 85025; 85651; 86140; 93005; 99285

== ENCOUNTER 2023-03-02 17:32 | Emergency (ER) | payer MEDICAID, SELFPAY ==
[2023-03-02 18:23] VITALS: BP 112/67; PULSE 86; RESP 16; TEMP 36.8; O2SAT 95; BMI 32.5
[2023-03-02 20:30] LABS: Basophils # 0.1 10^3/uL (0.0-0.1); Eosinophils # 0.7 10^3/uL (0.0-0.8); Eosinophils % 5.8 %; Hematocrit 37.9 % (42.0-52.0); Hemoglobin 12.2 g/dL (11.7-16.6); Lymphocytes # 2.5 10^3/uL (0.8-4.8); Lymphocytes % 19.7 %; Mean Corpuscular HGB Conc 32.2 g/dL (30.0-36.0); Mean Corpuscular Hemoglobin 28.9 pg (28.0-34.0); Mean Corpuscular Volume 89.8 fl (80-94); Mean Platelet Volume 8.5 fL (7.4-10.4); Monocytes # 1.4 10^3/uL (0.2-0.9); Monocytes % 11.1 %; Neutrophils # 7.78 10^3/uL (1.8-7.7); Neutrophils % 61.6 %; Nucleated Red Blood Cells % 0 %; Platelet Count 419 10^3/cmm (130-400); Red Blood Count 4.22 10^6/uL (4.1-5.3); Red Cell Distribution Width 15.1 % (12.1-15.1); White Blood Count 12.7 10^3/uL (4.0-10.0)
[2023-03-02 20:47] LABS: Alanine Aminotransferase 9 U/L (0-41); Albumin Level 4.2 g/dL (3.5-5.2); Alkaline Phosphatase 86 U/L (40-130); Anion Gap 13.8 (5-19); Aspartate Amino Transferase 14 U/L (0-40); Blood Urea Nitrogen 11 mg/dL (6-20); Calcium 8.9 mg/dL (8.5-10.5); Carbon Dioxide 30 mmol/L (22-29); Chloride 97 mmol/L (98-107); Globulin 3.3 g/dL (1.3-4.6); Glomerular Filtration Rate 69.5 mL/min (90-130); Glucose 89 mg/dL (65-115); Osmolality Calculated 283 mOsm/kg (285-295); Potassium 3.8 mmol/L (3.5-5.1); Sodium 137 mmol/L (136-145); Total Bilirubin 0.2 mg/dL (0.15-1.2); Total Protein 7.5 g/dL (6.6-8.7)
== END 2023-03-02 22:56 | disposition left against medical advice (07) ==
LOC: ER 17:48
PROVIDERS: Emergency Medicine; Emergency Provider Family Medicine; PCP Nurse Practitioner
DX: Z53.21 Procedure and treatment not carried out due to patient leaving prior to being seen by health care provider (principal)
CPT/HCPCS: 36415; 80053; 85025

== ENCOUNTER 2023-04-26 07:12 | Outpatient (CLI) | payer MEDICAID, SELFPAY ==
[2023-04-26 07:36] VITALS: PULSE 90; RESP 18; O2SAT 96
[2023-04-26] MEDS: albuterol 2.5 mg/3 mL Neb INHALATION (07:36)
[2023-04-26 07:41] VITALS: PULSE 93
== END 2023-04-26 07:13 | disposition home or self-care (01) ==
PROVIDERS: PCP Nurse Practitioner; Visit Provider Internal Medicine Pulmonary Disease
DX: J44.9 Chronic obstructive pulmonary disease, unspecified (principal); F17.210 Nicotine dependence, cigarettes, uncomplicated
CPT/HCPCS: 94060; 94618; 94726; 94729; J7613

== ENCOUNTER 2023-05-06 12:09 | Outpatient (CLI) | payer MEDICAID, SELFPAY ==
--- NOTE | 2023-05-06 12:26 | US_ITS ---
WS: [id number] Complete ABDOMINAL ULTRASOUND HISTORY: HX OF ALCOHOL ABUSE/ABDOMINAL DISTENSION COMPARISON: None available. Liver: 17.3 cm in length. Normal size liver and echogenicity. No bile duct dilatation or mass. Surfac e of the liver is very slightly nodular which can be seen with early changes of cirrhosis. Portal Vein: Normal hepatopetal flow with monophasic waveform. Gallbladder: Normally distended gallbladder with no stones or wall thickening. CBD: 0.4 cm Pancreas: Normal size and echogenicity. Right kidney: 9.9 cm x 4.7 x 4.5 cm. Cortex:1.4 cm. Normal size and echogenicity. No hydronephrosis or mass. Left kidney: 9.8 cm x 5.2 cm x 5.1 cm. Cortex: 1.3 cm. Normal size kidney. There is a very small hypoechoic mass exophytic from the mid kidney. Mass measure s 9 x 10 x 10 mm and is too small to characterize completely. Spleen: Normal. 9.5 cm in length. No ascites. Aorta and IVC: Unremarkable abdominal aorta and IVC. US/US abdomen complete* [id number] Impression: 1. Too small to characterize hypoechoic mass exophytic from the mid LEFT kidne y with a maximum diameter of 10 mm. This can be further evaluated with renal ma ss protocol by CT or MRI. 2. Normal gallbladder. 3. No ascites.
== END 2023-05-06 12:10 | disposition home or self-care (01) ==
LOC: RAD 12:13
PROVIDERS: PCP Nurse Practitioner; Visit Provider Nurse Practitioner
DX: R14.0 Abdominal distension (gaseous) (principal)
CPT/HCPCS: 76700

== ENCOUNTER 2023-07-07 11:44 | Outpatient (CLI) | payer MEDICAID, SELFPAY ==
--- NOTE | 2023-07-07 12:07 | ECG_ITS ---
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 Interpretive Statements NAME OF STUDY: TREADMILL STRESS TEST INDICATION: [Shortness of Breath] EXERCISE DATA: The patient was exercised by Ayan protocol. Baseline heart rate was 73 beats per minute. Baseline blood pressure was 118/73 millimeters of mercury. Target heart rate was 139 beats per minute. Maximum heart rate achieved was 141 which was 101% of the target heart rate. Maximum blood pressure was 154/96 millimeters of mercury. Total exercise time was 7 minutes. Maximum METs achieved was 10.2. The reason for ending the test was maximal effort achieved. The patient complained of shortness of breath during the stress test, which then resolved at the end of the test. ELECTROCARDIOGRAM: BASELINE: Showed sinus rhythm, normal axis, no significant ST-T changes at the baseline noted. [] EXERCISE: At the peak exercise level, [] No significant ST-T changes suggestive of ischemia noted. [] RECOVERY: During the recovery period, heart rate dropped appropriately. No significant ST-T changes in the recovery suggestive of ischemia noted. [] CONCLUSION: 1. Exercise capacity is good. 2. Heart rate response was appropriate. 3. Blood pressure response was appropriate. 4. Stress test is negative for ischemia. Electronically Signed On 07-27-2023 14:48:59 CDT by Beau Mancera M.D. [id number]
[2023-07-07 12:08] VITALS: BMI 34.0
[2023-07-07 12:40] VITALS: BP 129/82; PULSE 93
== END 2023-07-07 11:45 | disposition home or self-care (01) ==
PROVIDERS: PCP Nurse Practitioner; Visit Provider Internal Medicine Pulmonary Disease
DX: R06.02 Shortness of breath (principal)
CPT/HCPCS: 93017